=== PATIENT | female | born 1980 | race Caucasian/White ===

== ENCOUNTER 2025-04-04 08:19 | Day surgery (SDC) | payer OTHER ==
[~2025-04-04] VITALS: Ht 172.7 cm; Wt 59.0 kg
[~2025-04-04 08:19] MED LIST: VITA1CAP25 PO
[2025-04-04] MEDS ORDERED: KETOROLAC 30 MG/ML 1 ML VIAL As Ordered ONE (08:25)
[2025-04-04] MEDS ORDERED: ONDANSETRON 4MG 2ML VIAL As Ordered ONE (08:25)
[2025-04-04] MEDS ORDERED: GLYCOPYRROLATE INJ 0.2 MG/ML 2 ML VIAL As Ordered ONE (08:25)
[2025-04-04] MEDS ORDERED: LIDOCAINE 2% 100 MG/5 ML SDV (FOR ANES.) As Ordered ONE (08:25)
[2025-04-04] MEDS ORDERED: dexAMETHasone 4 MG/ML 1 ML VIAL As Ordered ONE (08:25)
[2025-04-04] MEDS ORDERED: MIDAZOLAM INJ 2 MG/2 ML VIAL As Ordered ONE (08:26)
[2025-04-04] MEDS: LR 1,000 ML IV SCH (08:50)
[2025-04-04] MEDS ORDERED: ACETAMINOPHEN 1000MG/100ML IV BAG As Ordered ONE (08:59)
[2025-04-04] MEDS ORDERED: PHENYLephrine 500MCG 5ML (100MCG/ML) SYRINGE As Ordered ONE (11:13)
[2025-04-04] MEDS: LIDOCAINE W/EPINEPHrine 1% 20 ML VIAL As Ordered ONE (11:21)
[2025-04-04] MEDS ORDERED: HYDROMORPHONE HCL 0.5 MG/0.5 ML SYRINGE IV PRN (11:50)
[2025-04-04] MEDS ORDERED: LR 1,000 ML IV SCH (11:50)
[2025-04-04 13:14] VITALS: BP 108/60; TEMP 98.2; O2SAT 98
== END 2025-04-04 13:41 | disposition home or self-care (01) ==
LOC: M SDC 08:19
PROVIDERS: ATTEND Obstetrics & Gynecology
DX: N90.60 Unspecified hypertrophy of vulva (principal); Z88.1 Allergy status to other antibiotic agents; Z88.7 Allergy status to serum and vaccine
CPT/HCPCS: 15839; 36415; 81025; 85014; 85018; 88302; J0131; J0688; J1100; J1596; J1885; J2250; J2371; J2405; J2765; J3010